=== PATIENT | male | born 1995 | race Two or more races ===

== ENCOUNTER 2016-09-16 13:47 | Emergency (ER) | payer MEDICAID ==
[~2016-09-16] VITALS: Ht 185.4 cm; Wt 138.3 kg
[2016-09-16] MEDS ORDERED: predniSONE 20 MG TABLET PO ONE (14:30)
[2016-09-16] MEDS ORDERED: IPRATROPIUM NEB FS 0.5 MG/2.5 ML AMPUL.NEB NEB ONE (14:30)
[2016-09-16] MEDS ORDERED: predniSONE 20 MG TABLET ONE (14:54)
[2016-09-16] MEDS: ALBUTEROL FS 2.5 MG/3 ML VIAL.NEB NEB ONE ×2 (14:57→15:15)
[2016-09-16] MEDS ORDERED: IPRATROPIUM NEB FS 0.5 MG/2.5 ML AMPUL.NEB ONE (15:02)
[2016-09-16] MEDS ORDERED: ALBUTEROL FS 2.5 MG/3 ML VIAL.NEB ONE (15:02)
[2016-09-16 16:25] VITALS: BP 132/84
== END 2016-09-16 16:25 | disposition home or self-care (01) ==
LOC: ER 13:50
DX: J98.01 Acute bronchospasm (principal); F17.200 Nicotine dependence, unspecified, uncomplicated
CPT/HCPCS: 71010; 94640 ×2; 99284; A4606; J7512; Z7610

== ENCOUNTER 2017-08-12 11:10 | Emergency (ER) | payer MEDICAID ==
[~2017-08-12] VITALS: Ht 188 cm; Wt 145.1 kg
[2017-08-12 11:16] VITALS: BP 127/77
--- NOTE | 2017-08-12 12:23 | NUR ---
Patient discharged to home in stable condition. Written and verbal after care instructions given. Patient verbalizes understanding of instruction.
== END 2017-08-12 12:24 | disposition home or self-care (01) ==
LOC: ER 11:11
DX: J20.9 Acute bronchitis, unspecified (principal); F17.200 Nicotine dependence, unspecified, uncomplicated; Z87.01 Personal history of pneumonia (recurrent)
CPT/HCPCS: 99283; A4606; Z7610

== ENCOUNTER 2017-08-19 19:27 | Emergency (ER) | payer MEDICAID ==
[~2017-08-19] VITALS: Ht 165.1 cm; Wt 162.0 kg
[2017-08-19 19:40] VITALS: BP 140/70
--- NOTE | 2017-08-19 21:18 | NUR ---
KNEE IMMOBILIZER APPLIED. PT D/C HOME IN STABLE CONDITION.
== END 2017-08-19 21:19 | disposition home or self-care (01) ==
LOC: ER 19:30
DX: M25.562 Pain in left knee (principal); E66.9 Obesity, unspecified; F17.200 Nicotine dependence, unspecified, uncomplicated; Z98.84 Bariatric surgery status; Z68.43 Body mass index [BMI] 50.0-59.9, adult
CPT/HCPCS: 29505; 73564; 99284; A4606; Z7610

== ENCOUNTER 2017-12-09 09:09 | Emergency (ER) | payer MEDICAID ==
[~2017-12-09] VITALS: Ht 188 cm; Wt 154.2 kg
[2017-12-09 09:10] VITALS: BP 134/81
== END 2017-12-09 09:47 | disposition home or self-care (01) ==
LOC: ER 09:10
DX: B97.89 Other viral agents as the cause of diseases classified elsewhere (principal); J02.8 Acute pharyngitis due to other specified organisms; J45.909 Unspecified asthma, uncomplicated; F90.9 Attention-deficit hyperactivity disorder, unspecified type; F17.200 Nicotine dependence, unspecified, uncomplicated
CPT/HCPCS: 99281; A4606; Z7610; Z7502

== ENCOUNTER 2018-01-01 10:53 | Emergency (ER) | payer MEDICAID ==
[~2018-01-01] VITALS: Ht 188 cm; Wt 158.8 kg
[2018-01-01 10:59] VITALS: BP 149/79
== END 2018-01-01 11:13 | disposition home or self-care (01) ==
LOC: ER 10:57
DX: F41.9 Anxiety disorder, unspecified (principal); R00.2 Palpitations; R06.02 Shortness of breath; F90.9 Attention-deficit hyperactivity disorder, unspecified type; F17.200 Nicotine dependence, unspecified, uncomplicated; Z98.84 Bariatric surgery status
CPT/HCPCS: 99284; A4606; Z7610

== ENCOUNTER 2018-09-18 10:48 | Emergency (ER) | payer MEDICAID ==
[~2018-09-18] VITALS: Ht 188 cm; Wt 168.7 kg
[2018-09-18 10:48] VITALS: BP 144/86
[2018-09-18] MEDS ORDERED: IBUPROFEN 600 MG TABLET PO ONE ×2 (11:16→11:30)
[2018-09-18] MEDS ORDERED: predniSONE 20 MG TABLET ONE (12:29)
[2018-09-18] MEDS ORDERED: predniSONE 20 MG TABLET PO ONE (12:30)
== END 2018-09-18 12:35 | disposition home or self-care (01) ==
LOC: ER 10:53
DX: J02.9 Acute pharyngitis, unspecified (principal); E66.01 Morbid (severe) obesity due to excess calories; F17.200 Nicotine dependence, unspecified, uncomplicated; F90.9 Attention-deficit hyperactivity disorder, unspecified type; Z68.42 Body mass index [BMI] 45.0-49.9, adult; Z98.890 Other specified postprocedural states; Z98.84 Bariatric surgery status
CPT/HCPCS: 87070; 87880; 99283; A4606; J7512; Z7610; 86403-TC

== ENCOUNTER 2018-09-19 09:21 | Emergency (ER) | payer MEDICAID ==
[~2018-09-19] VITALS: Ht 188 cm; Wt 170.1 kg
[2018-09-19 09:26] VITALS: BP 145/97
== END 2018-09-19 09:58 | disposition home or self-care (01) ==
LOC: ER 09:23
DX: H66.92 Otitis media, unspecified, left ear (principal); F90.9 Attention-deficit hyperactivity disorder, unspecified type; F17.200 Nicotine dependence, unspecified, uncomplicated; Z98.890 Other specified postprocedural states
CPT/HCPCS: 99283; A4606; Z7610

== ENCOUNTER 2019-09-20 14:41 | Emergency (ER) | payer MEDICAID ==
[~2019-09-20] VITALS: Ht 188 cm; Wt 171.5 kg
[2019-09-20 17:40] VITALS: BP 137/75
== END 2019-09-20 17:49 | disposition home or self-care (01) ==
LOC: ER 14:48
DX: J45.909 Unspecified asthma, uncomplicated (principal); Z98.890 Other specified postprocedural states